=== PATIENT | male | born 1960 | race Caucasian/White ===

== ENCOUNTER 2019-10-07 20:50 | Emergency (ER) | payer OTHER, BC ==
[~2019-10-07] VITALS: Ht 182.9 cm; Wt 89.8 kg
[2019-10-07 21:14] VITALS: BP_SYST 162
--- NOTE | 2019-10-07 22:00 | NUR ---
Patient to ER bed 6 to gown for evaluation. Side rails up. Report given to Nely HARRIS.
--- NOTE | 2019-10-07 22:04 | NUR ---
ER at bedside examining patient.
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
--- NOTE | 2019-10-07 22:34 | NUR ---
Pt ambulatory to CT with elevator technician in stable condition.
--- NOTE | 2019-10-08 00:06 | NUR ---
Pt laying in bed with no complaints and vital signs stable. Will continue to monitor.
[2019-10-08 01:15] VITALS: BP_SYST 146
--- NOTE | 2019-10-08 01:15 | NUR ---
Patient given written and verbal discharge instructions and verbalizes understanding. ER MD Gleason discussed with patient the results and treatment provided. Patient in stable condition. ID arm band removed. Rx of Naprosyn given. Patient educated on pain management and to follow up with PMD. Pain Scale 0/10. Opportunity for questions provided and answered. Medication side effect fact sheet provided.
== END 2019-10-08 01:15 | disposition home or self-care (01) ==
LOC: SED 20:50
DX: S00.83XA Contusion of other part of head, initial encounter (principal); I10 Essential (primary) hypertension; Z88.0 Allergy status to penicillin; V43.52XA Car driver injured in collision with other type car in traffic accident, initial encounter; Y93.89 Activity, other specified; Y92.413 State road as the place of occurrence of the external cause; Y99.8 Other external cause status
CPT/HCPCS: 70470-TC; 70486-TC; 99284

== ENCOUNTER 2021-07-06 08:46 | Emergency (ER) | payer BC ==
[~2021-07-06] VITALS: Ht 182.9 cm; Wt 92.1 kg
[2021-07-06 08:46] VITALS: BP_SYST 178
--- NOTE | 2021-07-06 08:46 | NUR ---
BROUGHT BACK TO BED #7 AND TRIAGED. REPORT GIVEN TO BRAYAN
--- NOTE | 2021-07-06 08:52 | NUR ---
ER DR. SHAVER AT THE BEDSIDE EXAMINING PT
--- NOTE | 2021-07-06 08:54 | NUR ---
PT CAME IN FROM HOME C/O WAKING UP WITH AM WITH PAIN/IRRITATION TO LEFT EYE. STATES WHEN HE WENT TO TAKE A SHOWER HE LOOKED IN THE MIRROR AND NOTICED THE WHITE OF HIS EYE WAS RED AND SWOLLEN. DENIES ANY CHANGES IN VISION. PT IS AMBULATORY, AAOX4, V/S STABLE
[2021-07-06] MEDS ORDERED: OLOP5DRO20 OP (08:55)
[2021-07-06 09:00] VITALS: BP_SYST 178
--- NOTE | 2021-07-06 09:01 | NUR ---
Patient given written and verbal discharge instructions and verbalizes understanding. ER MD discussed with patient the results and treatment provided. Patient in stable condition. ID arm band removed. Rx of PATADAY given. Patient educated on pain management and to follow up with PMD. Pain Scale 3/10 LEFT EYE. Opportunity for questions provided and answered. Medication side effect fact sheet provided. PT WAS INSTRUCTED BY MD TO TAKE HIS BP MED WHEN HE GETS HOME, HAS RX.
== END 2021-07-06 09:01 | disposition home or self-care (01) ==
LOC: SED 08:46
DX: H11.32 Conjunctival hemorrhage, left eye (principal); I10 Essential (primary) hypertension; Z88.0 Allergy status to penicillin; Z79.899 Other long term (current) drug therapy
CPT/HCPCS: 99282